=== PATIENT | male | born 1990 | race Hispanic/Latino ===

== ENCOUNTER 2018-08-25 19:31 | Emergency (ER) | payer SELFPAY | END 2018-08-25 20:00 | disposition home or self-care (01) | LOC: ERS 19:31 | DX: L02.92 Furuncle, unspecified (principal); L03.112 Cellulitis of left axilla; E78.5 Hyperlipidemia, unspecified | CPT/HCPCS: 99283 ==

== ENCOUNTER 2018-09-18 08:14 | Emergency (ER) | payer SELFPAY ==
[2018-09-18] MEDS ORDERED: Diazepam 5 MG TAB ONE (08:48)
[2018-09-18] MEDS ORDERED: Dexamethasone 10 MG/ML VIAL ONE ×2 (08:49→08:52)
[2018-09-18] MEDS ORDERED: Ketorolac Tromethamine 30 MG/ML VIAL ONE (08:49)
== END 2018-09-18 10:14 | disposition home or self-care (01) ==
LOC: ERS 08:14
DX: M54.42 Lumbago with sciatica, left side (principal)
CPT/HCPCS: 96372; J1100; J1885

== ENCOUNTER 2019-04-20 19:56 | Emergency (ER) | payer SELFPAY ==
--- NOTE | 2019-04-20 21:24 | RAD ---
PA AND LATERAL CHEST: History: Chest pain. FINDINGS: The heart size is normal. The lungs are expanded without focal areas of consolidation or pneumothorac es or pleural effusions. No acute osseous abnormalities are seen. IMPRESSION: No acute process. POS: [facility]
== END 2019-04-20 21:49 | disposition home or self-care (01) ==
LOC: ERS 19:56
DX: R07.89 Other chest pain (principal); E78.5 Hyperlipidemia, unspecified; E78.00 Pure hypercholesterolemia, unspecified
CPT/HCPCS: 71046